=== PATIENT | male | born 1980 | race Caucasian/White ===

== ENCOUNTER 2016-12-08 13:17 | Emergency (ER) | payer OTHER ==
[2016-12-08 13:52] VITALS: BP 169/92; PULSE 93; RESP 18; TEMP 96.7
--- NOTE | 2016-12-08 14:07 | ED ---
ENT HPI - General Chief complaint: ENT Stated complaint: Cough/Fever Time Seen by Provider: 12/08/16 13:48 Source: patient, RN notes reviewed Mode of arrival: ambulatory Limitations: no limitations - History of Present Illness Initial comments: Patient is a 28-year-old male she complaint of a cough for approximately 3 weeks. She reports the cough is nonproductive. Patient reports that he's had no antibiotics or steroids. He reports that he coughs to the point where he has having a sore throat. He denies any specific fevers at this time. He reported that he had a fever approximately 1 week ago. He denies any other associated symptoms. He states that he does have mild history of asthma but does not take any medications currently at this time to manage asthma. He also reports he has history of acid reflux disease and reports that that has been acting more frequently lately. He also takes levothyroxine for hypothyroidism. He denies any other significant past medical history. - Related Data Home Medications Medication Instructions Recorded Confirmed Levothyroxine Sodium [Levoxyl] 50 mcg PO DAILY 06/29/15 12/08/16 Omeprazole [PriLOSEC] 40 mg PO AC-BRKFST 06/29/15 12/08/16 Previous Rx's Medication Instructions Recorded Azithromycin [Zithromax Z-pack] 250 mg PO DIRECTED #6 tab 12/08/16 methylPREDNISolone Dose Pack 4 mg PO DIRECTED #21 package 12/08/16 [Medrol Dose Pack] Allergies Allergy/AdvReac Type Severity Reaction Status Date / Time codeine Allergy Hallucinati Verified 12/08/16 13:49 ons naproxen Allergy Rash/Hives Verified 12/08/16 13:49 Review of Systems ROS Statement: Those systems with pertinent positive or pertinent negative responses have been documented in the HPI. ROS Other: All systems not noted in ROS Statement are negative. Past Medical History Past Medical History: Asthma, GERD/Reflux, Thyroid Disorder History of Any Multi-Drug Resistant Organisms: None Reported Past Surgical History: Back Surgery Past Psychological History: Anxiety, Bipolar Smoking Status: Never smoker Past Alcohol Use History: Rare Past Drug Use History: None Reported General Exam - General Exam Comments Initial Comments: Well-appearing 28-year-old male. He doesn't appear to be in any acute distress. Limitations: no limitations General appearance: alert, in no apparent distress Head exam: Present: atraumatic, normocephalic, normal inspection Eye exam: Present: normal appearance, PERRL, EOMI. Absent: scleral icterus, conjunctival injection, periorbital swelling ENT exam: Present: normal exam, mucous membranes moist Neck exam: Present: normal inspection, full ROM. Absent: tenderness, meningismus, lymphadenopathy Respiratory exam: Present: normal lung sounds bilaterally, decreased breath sounds (Slightly decreased breath sounds over the left lower lobe.). Absent: respiratory distress, wheezes, rales, rhonchi, stridor Cardiovascular Exam: Present: regular rate, normal rhythm, normal heart sounds. Absent: systolic murmur, diastolic murmur, rubs, gallop, clicks GI/Abdominal exam: Present: soft, normal bowel sounds. Absent: distended, tenderness, guarding, rebound, rigid Extremities exam: Present: normal inspection, full ROM, normal capillary refill. Absent: tenderness, pedal edema, joint swelling, calf tenderness Back exam: Present: normal inspection Neurological exam: Present: alert, oriented X3, CN II-XII intact Psychiatric exam: Present: normal affect, normal mood Skin exam: Present: warm, dry, intact, normal color. Absent: rash Course Vital Signs 12/08/16 12/08/16 13:50 13:52 Temperature 96.7 F L Pulse Rate 93 Respiratory 18 18 Rate Blood Pressure 169/92 O2 Sat by Pulse 100 Oximetry Medical Decision Making - Medical Decision Making Patient is a 28-year-old male with chief complaint of a cough for approximately 3 weeks. He denies any specific fever. He also denies any other associated symptoms like chest pain or significant shortness of breath. He reports the cough has been nonproductive. Chest x-ray was obtained. Chest x-ray shows left -sided basilar atelectasis and a large hiatal hernia or intrathoracic stomach. Patient will be placed on azithromycin and Medrol Dosepak for the cough symptoms. Patient will also given a referral for Dr. Xie in regards to the hiatal hernia. I also advised to follow up with primary care provider as soon as possible and he understands the treatment plan. Patient understands treatment plan and will comply. Return parameters were discussed. - Radiology Data Radiology results: report reviewed Large fixed hiatal hernia or intrathoracic stomach with adjacent left basilar atelectasis. Disposition Clinical Impression: Cough present for greater than 3 weeks, Hiatal hernia with GERD Disposition: HOME SELF-CARE Condition: Good Instructions: Hiatal Hernia (ED), Acute Bronchitis (ED) Additional Instructions: Follow-up with primary care provider within the next 1-2 days. Start antibiotics and complete the entire prescription as well as the steroid prescription. Return to the [facility] if any alarming signs or symptoms occur. Prescriptions: Azithromycin [Zithromax Z-pack] 250 mg PO DIRECTED #6 tab methylPREDNISolone Dose Pack [Medrol Dose Pack] 4 mg PO DIRECTED #21 package Referrals: Nathen Marc MD [Primary Care Provider] - 1-2 days Jimmie Xie MD [STAFF PHYSICIAN] - 1-2 days Time of Disposition: 14:35
--- NOTE | 2016-12-08 14:08 | XR ---
EXAMINATION TYPE: XR chest 2V DATE OF EXAM: 12/08/2016 2:03 PM COMPARISON: NONE HISTORY: Cough for one month. TECHNIQUE: Frontal and lateral views of the chest are obtained. FINDINGS: There is no worrisome focal air space opacity, pleural effusion, or pneumothorax seen. Th e cardiac silhouette size is within normal limits. Retrocardiac opacity with air-fluid levels consist ent with large size fixed hiatal hernia or intrathoracic stomach. Some adjacent left basilar atelect atic changes present. The osseous structures are intact. IMPRESSION: Large fixed hiatal hernia or intrathoracic stomach with adjacent left basilar atelectasi s.
== END 2016-12-08 14:38 | disposition home or self-care (01) ==
LOC: EC 13:17
DX: R05 Cough (principal); K44.9 Diaphragmatic hernia without obstruction or gangrene; K21.9 Gastro-esophageal reflux disease without esophagitis; E03.9 Hypothyroidism, unspecified; Z79.899 Other long term (current) drug therapy; Z88.5 Allergy status to narcotic agent; Z88.6 Allergy status to analgesic agent
CPT/HCPCS: 71020; 99283

== ENCOUNTER 2019-04-20 14:52 | Emergency (ER) | payer OTHER ==
[2019-04-20 15:48] VITALS: BP 122/83; PULSE 95; RESP 18; TEMP 98.6
--- NOTE | 2019-04-20 16:13 | XR ---
EXAMINATION TYPE: XR shoulder complete RT DATE OF EXAM: 04/20/2019 COMPARISON: NONE HISTORY: 38-year-old male with pain TECHNIQUE: 3 views FINDINGS: Mild degenerative joint space narrowing with marginal spurring and capsular hypertrophy at the AC beto nt. Subacromial space is preserved. No acute fracture, subluxation, or dislocation seen. IMPRESSION: Mild AC joint OA. No acute osseous abnormality seen.
[2019-04-20] MEDS ORDERED: IBUPROFEN 600 MG TAB PO STA (16:25)
--- NOTE | 2019-04-20 16:29 | ED ---
General Adult HPI - General Chief complaint: Extremity Injury, Upper Stated complaint: R shoulder pain Time Seen by Provider: 04/20/19 16:19 Source: patient Mode of arrival: ambulatory Limitations: no limitations - History of Present Illness Initial comments: 38-year-old male presenting with non-genetic right shoulder pain. He states he was doing a lot of heavy lifting and yard work yesterday, but he does not recall the specific event that started his pain. He states his progressively been getting worse, is located in the anterior right shoulder, and is exacerbated by movement, and not alleviated by Biofreeze. He denies any numbness or weakness of the upper extremity. Admits to hearing a clicking noise when he is moving his shoulder. - Related Data Home Medications Medication Instructions Recorded Confirmed Levothyroxine Sodium [Levoxyl] 50 mcg PO DAILY 06/29/15 12/08/16 Omeprazole [PriLOSEC] 40 mg PO AC-BRKFST 06/29/15 12/08/16 Previous Rx's Medication Instructions Recorded Azithromycin [Zithromax Z-pack] 250 mg PO DIRECTED #6 tab 12/08/16 methylPREDNISolone Dose Pack 4 mg PO DIRECTED #21 package 12/08/16 [Medrol Dose Pack] Ibuprofen [Motrin] 600 mg PO Q8HR PRN #30 tab 04/20/19 Allergies Allergy/AdvReac Type Severity Reaction Status Date / Time codeine Allergy Hallucinati Verified 04/20/19 15:48 ons naproxen Allergy Rash/Hives Verified 04/20/19 15:48 Review of Systems ROS Statement: Those systems with pertinent positive or pertinent negative responses have been documented in the HPI. Review of Systems Constitutional: Denies fever, chills Ears, nose, mouth, throat: Denies headaches, Denies sore throat Cardiovascular: Denies chest pain. Denies palpitations Respiratory: Denies shortness of breath, Denies cough Gastrointestinal: Denies abdominal pain. Denies nausea, vomiting, diarrhea. Musculoskeletal: Positive pain, Denies swelling Integumentary: Denies rash Neurological: Denies headache, focal weakness, focal numbness ROS Other: All systems not noted in ROS Statement are negative. Past Medical History Past Medical History: Asthma, GERD/Reflux, Thyroid Disorder History of Any Multi-Drug Resistant Organisms: None Reported Past Surgical History: Back Surgery Past Psychological History: Anxiety, Bipolar Smoking Status: Never smoker Past Alcohol Use History: Rare Past Drug Use History: None Reported General Exam - General Exam Comments Initial Comments: General: Awake, alert, No acute Distress HENT: Normocephalic. Atraumatic Eyes: PERRL. EOMI. No scleral icterus. No injected conjunctiva Neck: Full ROM Chest/Lungs: Even non-labored breathing. Cardiac: Regular rate, rhythm. No murmurs or rubs. 2+ radial pulse on right. Musculoskeletal: Full ROM. Pain with palpation along right bicipital groove. Positive Yergason test on right. No swelling or deformity. Skin: Warm, dry, intact Neurologic: A/Ox3, no weakness, no sensory deficit, no abnormal gait, no coordination deficit Limitations: no limitations Course Vital Signs 04/20/19 15:46 Temperature 98.6 F Pulse Rate 95 Respiratory 18 Rate Blood Pressure 122/83 O2 Sat by Pulse 94 L Oximetry Medical Decision Making - Medical Decision Making 38 yoM presenting with shoulder pain. Xray negative for acute process. His exam is consistent with tendonitis. He was prescribed motrin and given orthopedic fo llow up. No further emergent workup indicated. The patient was given return to ED instructions. They were instructed to follow up with their primary care provider. Stable for discharge at this time. Disposition Clinical Impression: Shoulder pain, right, Biceps tendinitis of right shoulder Disposition: HOME SELF-CARE Condition: Good Instructions (If sedation given, give patient instructions): Tendinitis (ED), Shoulder Pain (ED) Additional Instructions: Take the Motrin with food. An alternate taking Tylenol as well. Prescriptions: Ibuprofen [Motrin] 600 mg PO Q8HR PRN #30 tab PRN Reason: Pain Is patient prescribed a controlled substance at d/c from ED?: No Referrals: Nathen Marc MD [Primary Care Provider] - 1-2 days Cody Rey MD [STAFF PHYSICIAN] - 1-2 days
== END 2019-04-20 16:46 | disposition home or self-care (01) ==
LOC: EC 14:52
DX: M75.21 Bicipital tendinitis, right shoulder (principal); K21.9 Gastro-esophageal reflux disease without esophagitis; E07.9 Disorder of thyroid, unspecified; Z79.890 Hormone replacement therapy; Z79.899 Other long term (current) drug therapy; Z88.5 Allergy status to narcotic agent; Z88.6 Allergy status to analgesic agent
CPT/HCPCS: 99283